=== PATIENT | male | born 1960 | race Caucasian/White ===

== ENCOUNTER 2020-10-01 08:17 | Day surgery (SDC) | payer OTHER, SELFPAY ==
[~2020-10-01] VITALS: Ht 165.1 cm; Wt 99.8 kg
[2020-10-01] MEDS ORDERED: MIDAZOLAM HCL 5 MG/5 ML VIAL ONE (10:47)
[2020-10-01] MEDS ORDERED: MEPERIDINE 100 MG INJ. 100 MG/ML VIAL ONE (10:47)
[2020-10-01] MEDS ORDERED: MIDAZOLAM HCL 5 MG/5 ML VIAL IVP ONE ×3 (11:01→11:14)
[2020-10-01] MEDS ORDERED: BENZOCAINE 20% 0.5mL UD SPRAY MM ONE (11:02)
[2020-10-01] MEDS ORDERED: GLYCOPYRROLATE 0.2 MG/ML VIAL ONE (11:05)
[2020-10-01 13:47] VITALS: BP_SYST 122
== END 2020-10-01 12:40 | disposition home or self-care (01) ==
LOC: SDS 08:17 → SMU 08:18 → SDS 12:40
PROVIDERS: ATTEND Colon & Rectal Surgery
DX: K62.5 Hemorrhage of anus and rectum (principal); K57.30 Diverticulosis of large intestine without perforation or abscess without bleeding; K29.80 Duodenitis without bleeding; K29.70 Gastritis, unspecified, without bleeding; K64.8 Other hemorrhoids; Z86.010 Personal history of colon polyps; E78.5 Hyperlipidemia, unspecified; E66.9 Obesity, unspecified; G47.33 Obstructive sleep apnea (adult) (pediatric); Z68.35 Body mass index [BMI] 35.0-35.9, adult; Z79.899 Other long term (current) drug therapy; Z20.822 Contact with and (suspected) exposure to COVID-19
CPT/HCPCS: 36415; 43239; 45378; 87081; 88305; 88312; 88313; 88342; 99152; J2175; J2250; J3490; U0003